=== PATIENT | male | born 1985 | race Caucasian/White ===

== ENCOUNTER 2017-07-02 09:05 | Emergency (ER) | payer MEDICAID ==
--- NOTE | 2017-07-02 09:43 | EDM.PDOC ---
ED HPI GENERAL MEDICAL PROBLEM - General Chief Complaint: General Stated Complaint: COUGH Time Seen by Provider: 07/02/17 09:27 - History of Present Illness INITIAL COMMENTS - FREE TEXT/NARRATIVE: HISTORY AND PHYSICAL: History of present illness: The patient is a 31-year-old male with no significant medical history or presents with a four-day history of dry hacking cough sore throat and raspy laryngitis-like voice body aches and subjective fevers and chills. The patient has a history of an ileostomy but otherwise has no abdominal pain vomiting or diarrhea. Patient has no neck pain headache or back pain. He does not feel short of breath but he says he is coughing up some phlegm. He says that one of his children at home is also ill. Patient is recently relocated here from [place] and has no provider in the clinic Review of systems: As per history of present illness and below otherwise all systems reviewed and negative. Past medical history: As per history of present illness and as reviewed below otherwise noncontributory. Surgical history: As per history of present illness and as reviewed below otherwise noncontributory. Social history: No reported history of drug or alcohol abuse. Family history: As per history of present illness and as reviewed below otherwise noncontributory. Physical exam: Gen.: Patient is well-developed well-nourished and mildly overweight who has slightly hoarse voice but is not breathless HEENT: Atraumatic, normocephalic, pupils reactive, negative for conjunctival pallor or scleral icterus, mucous membranes moist, throat clear of exudates but there is some posterior erythema no nuchal rigidity or cervical adenopathy, the turbinates are boggy bilaterally there is no gross sinus tenderness on palpation , neck supple, nontender, trachea midline. Lungs: Clear to auscultation with diminished breath sounds in the bases but no wheezing stridor or sensory muscle use, breath sounds equal bilaterally, chest nontender. Heart: S1S2, regular, rhythm and slightly tachycardic rate on my evaluation Abdomen: Soft, nondistended, nontender. NABS. Pelvis: Deferred Genitourinary: Deferred. Rectal: Deferred. Extremities: Atraumatic, negative for cords or calf pain. Neurovascular unremarkable. Neuro: Awake, alert, oriented. Cranial nerves II through XII unremarkable. Cerebellum unremarkable. Motor and sensory unremarkable throughout. Exam nonfocal. Diagnostics: Influenza rapid strep chest x-ray Therapeutics: [] Impression: Laryngitis/bronchitis Definitive disposition and diagnosis as appropriate pending reevaluation and review of above. Generalized Pain Score (Numeric/FACES): 7 - Related Data Allergies Allergy/AdvReac Type Severity Reaction Status Date / Time acetaminophen [From Vicodin] Allergy Nausea and Verified 07/02/17 09:26 Vomiting hydrocodone [From Vicodin] Allergy Nausea and Verified 07/02/17 09:26 Vomiting infliximab [From Remicade] Allergy Cardiac Verified 07/02/17 09:24 Arrest iodine Allergy Hives Verified 07/02/17 09:26 Penicillins Allergy Hives Verified 07/02/17 09:24 Home Meds: Home Meds Diclofenac Potassium [Cambia] 50 mg PO ASDIRECTED PRN 07/02/17 [History] Past Medical History Gastrointestinal History: Reports: Other (See Below) Other Gastrointestinal History: Ulcerative colitis Neurological History: Reports: Migraines - Infectious Disease History Infectious Disease History: Reports: Chicken Pox, MRSA - Past Surgical History HEENT Surgical History: Reports: Naso-Sinus Surgery GI Surgical History: Reports: Other (See Below) Other GI Surgeries/Procedures: 16 surgeries re Ulcerative Colitis, patient now has ileostomy Social & Family History - Tobacco Use Smoking Status *Q: Never Smoker Second Hand Smoke Exposure: No - Caffeine Use Caffeine Use: Reports: Coffee, Energy Drinks, Soda - Recreational Drug Use Recreational Drug Use: No ED ROS GENERAL - Review of Systems Review Of Systems: ROS reveals no pertinent complaints other than HPI. ED EXAM, GENERAL - Physical Exam Exam: See Below (See dictation) Course - Vital Signs Last Recorded V/S: Last Vital Signs Temp 37.2 C 07/02/17 09:20 Pulse 104 H 07/02/17 09:20 Resp 16 07/02/17 09:20 BP 140/96 H 07/02/17 09:20 Pulse Ox 95 07/02/17 09:20 - Orders/Labs/Meds Orders: Active Orders 24 hr Category Date Time Status Chest 2V [CR] Stat Exams 07/02/17 09:38 Taken CULTURE STREP A CONFIRMATION [RM] Stat Lab 07/02/17 10:00 Results STREP SCRN A RAPID W CULT CONF [RM] Stat Lab 07/02/17 10:00 Results Departure - Departure Time of Disposition: 11:10 Disposition: Home, Self-Care 01 Condition: Good Clinical Impression: Laryngitis, Bronchitis - Discharge Information Referrals: PCP,None [Primary Care Provider] - Forms: ED Department Discharge Additional Instructions: The following information is given to patients seen in the emergency department who are being discharged to home. This information is to outline your options for follow-up care. We provide all patients seen in our emergency department with a follow-up referral. The need for follow-up, as well as the timing and circumstances, are variable depending upon the specifics of your emergency department visit. If you don't have a primary care physician on staff, we will provide you with a referral. We always advise you to contact your personal physician following an emergency department visit to inform them of the circumstance of the visit and for follow-up with them and/or the need for any referrals to a consulting specialist. The emergency department will also refer you to a specialist when appropriate. This referral assures that you have the opportunity for followup care with a specialist. All of these measure are taken in an effort to provide you with optimal care, which includes your followup. Under all circumstances we always encourage you to contact your private physician who remains a resource for coordinating your care. When calling for followup care, please make the office aware that this follow-up is from your recent emergency room visit. If for any reason you are refused follow-up, please contact the [facility] emergency department at and ask to speak to the emergency department charge nurse. [facility] Primary care- Internal Medicine and Family [address] [address] Push hydration and take medications as directed and rest. Please call and follow -up with provider in our clinic as directed and return to ER as needed and as discussed. - My Orders Last 24 Hours: My Active Orders 07/02/17 09:38 Chest 2V [CR] Stat 07/02/17 10:00 CULTURE STREP A CONFIRMATION [RM] Stat STREP SCRN A RAPID W CULT CONF [RM] Stat - Assessment/Plan Last 24 Hours: My Active Orders 07/02/17 09:38 Chest 2V [CR] Stat 07/02/17 10:00 CULTURE STREP A CONFIRMATION [RM] Stat STREP SCRN A RAPID W CULT CONF [] Stat
--- NOTE | 2017-07-02 11:09 | CR ---
EXAMINATION: Two-view chest (PA and Lateral views). HISTORY: Shortness of breath. FINDINGS: The trachea is midline. The cardiomediastinal silhouette is within normal limits. No pulmonary infilt rates, effusions or pneumothorax. Osseous structures appear unremarkable. IMPRESSION: No acute cardiopulmonary process.
== END 2017-07-02 11:25 | disposition home or self-care (01) ==
LOC: MW.ED 09:05
DX: J04.0 Acute laryngitis (principal); J40 Bronchitis, not specified as acute or chronic; Z88.0 Allergy status to penicillin; Z88.5 Allergy status to narcotic agent; Z88.6 Allergy status to analgesic agent; Z88.8 Allergy status to other drugs, medicaments and biological substances
CPT/HCPCS: 71020; 71020-26; 87081; 87804; 87880; 99282; 99284

== ENCOUNTER 2017-08-10 15:00 | Emergency (ER) | payer MEDICAID ==
[2017-08-10] MEDS ORDERED: diphenhydrAMINE 50 MG/ML SDV IVPUSH ONE (15:22)
[2017-08-10] MEDS ORDERED: Ketorolac 30 MG/ML SDV IVPUSH ONE (15:22)
[2017-08-10] MEDS ORDERED: Ondansetron 4 MG/2 ML SDV IVPUSH ONE (15:22)
[2017-08-10] MEDS ORDERED: Sodium Chloride 0.9% 1,000 ML IV ONE (15:22)
--- NOTE | 2017-08-10 15:28 | EDM.PDOC ---
ED HPI GENERAL MEDICAL PROBLEM - General Chief Complaint: Headache Stated Complaint: MIGRAINE Time Seen by Provider: 08/10/17 15:03 Source of Information: Reports: Patient History Limitations: Reports: No Limitations - History of Present Illness INITIAL COMMENTS - FREE TEXT/NARRATIVE: HISTORY AND PHYSICAL: History of present illness: Patient is a 32-year-old male who presents to the emergency room with complaints of a migraine headache. He has had migraines since his early teens. His neurologist is from [place], which she has seen approximately one year ago. He states he gets "one really bad migraine at least once a month" and mild headaches at least 2-3 per week. He takes diclofenac 50 mg intranasally as needed for migraine abortive measures. States last night around midnight he started to get a "really bad headache" and proceeded to use his diclofenac. Woke up this morning and did not have any relief with this medication. He has light and noise sensitivity, nausea, vomiting. He states that although this migraine is bad, it is not the worst headache of his life, as it is similar to ones he does get monthly. He states he does have triggers for these types of migraines, it is usually caffeine, which he had had earlier this week. He denies any visual changes, abdominal pain, fever or chills,, chest pain or shortness of breath. Review of systems: As per history of present illness and below otherwise all systems reviewed and negative. Past medical history: As per history of present illness and as reviewed below otherwise noncontributory. Surgical history: As per history of present illness and as reviewed below otherwise noncontributory. Social history: No reported history of drug or alcohol abuse. Family history: As per history of present illness and as reviewed below otherwise noncontributory. Physical exam: Gen.: Well-developed and well-nourished 32-year-old male. Alert and oriented. Appears nontoxic and in no acute distress. HEENT: Atraumatic, normocephalic, pupils reactive, negative for conjunctival pallor or scleral icterus, tympanic membranes normal bilaterally, mucous membranes moist, throat clear, neck supple, nontender, trachea midline. Lungs: Clear to auscultation, breath sounds equal bilaterally, chest nontender. Heart: S1S2, regular ate and rhythm without overt murmurs Abdomen: Soft, obese, nondistended, nontender. Negative for masses or hepatosplenomegaly. Negative for costovertebral tenderness. Pelvis: Stable nontender. Genitourinary: Deferred. Rectal: Deferred. Extremities: Atraumatic, negative for cords or calf pain. Neurovascular unremarkable. Neuro: Awake, alert, oriented. Cranial nerves II through XII unremarkable. Cerebellum unremarkable. Motor and sensory unremarkable throughout. Exam nonfocal. Did discuss possible diagnostics with the patient. He declines a head CT at this time. Is agreeable to receiving IV fluids and medications. Patient states he got relief at a 6 out of 10 with the Toradol, Zofran and Benadryl. Did give the patient 1 mg of Ativan IV. He is currently at a 3-4/10. States he feels well enough to go home. Encouraged the patient to go home and rest in a quiet dark room for the rest of the day. Will give the patient a prescription for Maxalt 5 mg ODT, may take 1 tablet at the onset of a migraine and may repeat second dose in 2 hours, 2 in a 24-hour period. Encouraged him to follow-up with a neurologist to find better management of his migraine symptoms. Patient is agreeable to plan of care and he denies any further questions at this time. Diagnostics: [] Therapeutics: IV fluid, Toradol, Zofran, Benadryl and Ativan Impression: Migraine Plan: 1. A prescription for Maxalt 5 mg ODT has been given to you. You may take 1 tablet, which will dissolve in your mouth, at the onset of symptoms of a migraine. You may take a second tablet 2 hours after, if you continued to have symptoms. You may repeat this if total of 2 times in a 24-hour period. You may continue to use Cambia as needed. But please do not take the two medications in the same 24 hour period. 2. I would encourage you to follow-up with the neurologist, either Dr. Bhardwaj here in [place] or your primary neurologist in [place]. You are taking your medications quite frequently and still having migraines at least monthly, there are medications that control this. 3. Follow-up with your primary caregiver in the next 1-2 days. Return to the ED as needed and as discussed. Definitive disposition and diagnosis as appropriate pending reevaluation and review of above. Onset: Today Duration: Hour(s): Location: Reports: Head headache Pain Score (Numeric/FACES): 7 - Related Data Allergies Allergy/AdvReac Type Severity Reaction Status Date / Time acetaminophen [From Vicodin] Allergy Nausea and Verified 08/10/17 15:21 Vomiting hydrocodone [From Vicodin] Allergy Nausea and Verified 08/10/17 15:21 Vomiting infliximab [From Remicade] Allergy Cardiac Verified 08/10/17 15:21 Arrest iodine Allergy Hives Verified 08/10/17 15:21 Penicillins Allergy Hives Verified 08/10/17 15:21 Home Meds: Home Meds Diclofenac Potassium [Cambia] 50 mg PO ASDIRECTED PRN 07/02/17 [History] Past Medical History Gastrointestinal History: Reports: Other (See Below) Other Gastrointestinal History: Ulcerative colitis Neurological History: Reports: Migraines - Infectious Disease History Infectious Disease History: Reports: Chicken Pox, MRSA - Past Surgical History HEENT Surgical History: Reports: Naso-Sinus Surgery GI Surgical History: Reports: Other (See Below) Other GI Surgeries/Procedures: 16 surgeries re Ulcerative Colitis, patient now has ileostomy Social & Family History - Tobacco Use Smoking Status *Q: Never Smoker Second Hand Smoke Exposure: No - Caffeine Use Caffeine Use: Reports: Coffee, Energy Drinks, Soda - Recreational Drug Use Recreational Drug Use: No ED ROS GENERAL - Review of Systems Review Of Systems: ROS reveals no pertinent complaints other than HPI. - Physical Exam Exam: See Below (See dictation) Course - Vital Signs Last Recorded V/S: Last Vital Signs Temp 97.8 F 08/10/17 15:00 Pulse 101 H 08/10/17 15:00 Resp 18 08/10/17 15:00 BP 152/78 H 08/10/17 15:00 Pulse Ox 98 08/10/17 15:00 - Orders/Labs/Meds Meds: Medications Discontinued Medications Generic Name Dose Route Start Last Admin Trade Name Freq PRN Reason Stop Dose Admin Diphenhydramine HCl 50 mg 08/10/17 15:22 08/10/17 15:58 Benadryl IVPUSH 08/10/17 15:23 50 mg ONETIME ONE Administration Sodium Chloride 1,000 mls @ 999 mls/hr 08/10/17 15:22 08/10/17 16:06 Normal Saline IV 08/10/17 16:22 999 mls/hr STAT ONE Administration Ketorolac Tromethamine 30 mg 08/10/17 15:22 08/10/17 15:58 Toradol IVPUSH 08/10/17 15:23 30 mg ONETIME ONE Administration Lorazepam 1 mg 08/10/17 16:04 08/10/17 16:45 Ativan IVPUSH 08/10/17 16:05 1 mg ONETIME ONE Administration Ondansetron HCl 4 mg 08/10/17 15:22 08/10/17 15:58 Zofran IVPUSH 08/10/17 15:23 4 mg ONETIME ONE Administration Departure - Departure Time of Disposition: 17:35 Disposition: Home, Self-Care 01 Clinical Impression: Migraine - Discharge Information Referrals: PCP,None [Primary Care Provider] - Forms: ED Department Discharge Additional Instructions: My general discharge The following information is given to patients seen in the emergency department who are being discharged to home. This information is to outline your options for follow-up care. We provide all patients seen in our emergency department with a follow-up referral. The need for follow-up, as well as the timing and circumstances, are variable depending upon the specifics of your emergency department visit. If you don't have a primary care physician on staff, we will provide you with a referral. We always advise you to contact your personal physician following an emergency department visit to inform them of the circumstance of the visit and for follow-up with them and/or the need for any referrals to a consulting specialist. The emergency department will also refer you to a specialist when appropriate. This referral assures that you have the opportunity for follow-up care with a specialist. All of these measure are taken in an effort to provide you with optimal care, which includes your follow-up. Under all circumstances we always encourage you to contact your private physician who remains a resource for coordinating your care. When calling for follow-up care, please make the office aware that this follow-up is from your recent emergency room visit. If for any reason you are refused follow-up, please contact the [facility] Emergency Department at and asked to speak to the emergency department charge nurse. [facility] Primary [facility] [address] [place] [address] [id number] [facility] Specialty Care - Neurology Professional [facility] [address] [place] [address], [address] [place] [address] 1. A prescription for Maxalt 5 mg ODT has been given to you. You may take 1 tablet, which will dissolve in your mouth, at the onset of symptoms of a migraine. You may take a second tablet 2 hours after, if you continued to have symptoms. You may repeat this if total of 2 times in a 24-hour period. You may continue to use Cambia as needed. But please do not take the two medications in the same 24 hour period. 2. I would encourage you to follow-up with the neurologist, either Dr. Bhardwaj here in [place] or your primary neurologist in [place]. You are taking your medications quite frequently and still having migraines at least monthly, there are medications that control this. 3. Follow-up with your primary caregiver in the next 1-2 days. Return to the ED as needed and as discussed.
[2017-08-10] MEDS ORDERED: LORazepam 2 MG/ML SDV IVPUSH ONE (16:04)
== END 2017-08-10 17:59 | disposition home or self-care (01) ==
LOC: MW.ED 15:00
DX: G43.909 Migraine, unspecified, not intractable, without status migrainosus (principal); Z88.5 Allergy status to narcotic agent; Z88.0 Allergy status to penicillin
CPT/HCPCS: 96361; 96374; 96375; 99284; J1200; J1885; J2060; J2405; J7040

== ENCOUNTER 2018-04-21 09:22 | Emergency (ER) | payer MEDICAID ==
[2018-04-21] MEDS ORDERED: Ketorolac 60 MG/2 ML SDV IM ONE (09:55)
--- NOTE | 2018-04-21 09:55 | EDM.PDOC ---
ED HPI GENERAL MEDICAL PROBLEM - General Chief Complaint: Upper Extremity Injury/Pain Stated Complaint: RT HAND GOING NUMB Time Seen by Provider: 04/21/18 09:44 - History of Present Illness INITIAL COMMENTS - FREE TEXT/NARRATIVE: HISTORY AND PHYSICAL: History of present illness: The patient is a 32-year-old male who presents complaints of pain to his right wrist that started yesterday after he felt a pop. The patient says that he was just pulling something out of a bag when he felt this and he is concerned because he had a fracture in his wrist last year for which he had a wear a cast for 6 weeks. The patient states that he had no issues until yesterday. He took Tylenol only for pain and has some tingling in his hand as he has not been moving very much. He has no distal finger pain no proximal forearm elbow or shoulder pain and has no other systemic complaints. He had no direct injury to the area. The patient is right-hand dominant Review of systems: As per history of present illness and below otherwise all systems reviewed and negative. Past medical history: As per history of present illness and as reviewed below otherwise noncontributory. Surgical history: As per history of present illness and as reviewed below otherwise noncontributory. Social history: No reported history of drug or alcohol abuse. Family history: As per history of present illness and as reviewed below otherwise noncontributory. Physical exam: General: Well-developed well-nourished overweight man who is nontoxic and vital signs are noted by me HEENT: Atraumatic, normocephalic, negative for conjunctival pallor or scleral icterus, mucous membranes moist, throat clear, neck supple, nontender, trachea midline. Lungs: Clear to auscultation, breath sounds equal bilaterally, chest nontender. Heart: S1S2, regular rate and rhythm no overt murmurs Abdomen: Soft, nondistended, nontender. NABS. Negative for costovertebral tenderness. Pelvis: Deferred Genitourinary: Deferred. Rectal: Deferred. Extremities: Atraumatic with full range of motion of all extremities with the exception of the right wrist where there is no soft tissue swelling no ecchymosis and no palpable bony deformities but there is tenderness at the ulnar styloid. The remainder of the hand is nontender without defects or deformities and there is no distal soft tissue swelling. Pulses are strong both radial and ulnar. The proximal forearm elbow humerus and shoulder are nontender without defects or deformities., The legs are negative for cords or calf pain. Neurovascular unremarkable. Neuro: Awake, alert, oriented. Cranial nerves II through XII unremarkable. Cerebellum unremarkable. Motor and sensory unremarkable throughout. Exam nonfocal. Diagnostics: X-ray right wrist Therapeutics: Toradol ulnar gutter splint Testing results were discussed and and referral to Dr. Cary will be made for evaluation of the small chip fracture Impression: Right wrist injury/pain rule out chip triquetral fracture Definitive disposition and diagnosis as appropriate pending reevaluation and review of above. Right Wrist Pain Score (Numeric/FACES): 6 - Related Data Allergies Allergy/AdvReac Type Severity Reaction Status Date / Time acetaminophen [From Vicodin] Allergy Nausea and Verified 04/21/18 09:31 Vomiting hydrocodone [From Vicodin] Allergy Nausea and Verified 04/21/18 09:31 Vomiting infliximab [From Remicade] Allergy Cardiac Verified 04/21/18 09:31 Arrest iodine Allergy Hives Verified 04/21/18 09:31 Penicillins Allergy Hives Verified 04/21/18 09:31 Home Meds: Home Meds Diclofenac Potassium [Cambia] 50 mg PO ASDIRECTED PRN 07/02/17 [History] Past Medical History Gastrointestinal History: Reports: Other (See Below) Other Gastrointestinal History: Ulcerative colitis Neurological History: Reports: Migraines - Infectious Disease History Infectious Disease History: Reports: Chicken Pox - Past Surgical History HEENT Surgical History: Reports: Naso-Sinus Surgery GI Surgical History: Reports: Other (See Below) Other GI Surgeries/Procedures: 16 surgeries re Ulcerative Colitis, patient now has ileostomy Social & Family History - Family History Family Medical History: Noncontributory - Tobacco Use Smoking Status *Q: Never Smoker - Caffeine Use Caffeine Use: Reports: Coffee, Energy Drinks, Soda - Recreational Drug Use Recreational Drug Use: No Review of Systems - Review of Systems Review Of Systems: ROS reveals no pertinent complaints other than HPI. ED EXAM, GENERAL - Physical Exam Exam: See Below (See dictation) Course - Vital Signs Last Recorded V/S: Last Vital Signs Temp 36.2 C 04/21/18 09:28 Pulse 102 H 04/21/18 09:28 Resp 18 04/21/18 09:28 BP 163/98 H 04/21/18 09:28 Pulse Ox 97 04/21/18 09:28 - Orders/Labs/Meds Orders: Active Orders 24 hr Category Date Time Status Wrist Comp Min 3V Rt [CR] Stat Exams 04/21/18 09:36 Taken DME for Discharge [COMM] Stat Oth 04/21/18 10:42 Ordered Meds: Medications Discontinued Medications Generic Name Dose Route Start Last Admin Trade Name Freq PRN Reason Stop Dose Admin Ketorolac Tromethamine 60 mg 04/21/18 09:55 04/21/18 10:28 Toradol IM 04/21/18 09:56 60 mg ONETIME ONE Administration Departure - Departure Time of Disposition: 10:54 Disposition: Home, Self-Care 01 Condition: Good Clinical Impression: Triquetral chip fracture - Discharge Information Referrals: PCP,None [Primary Care Provider] - Forms: ED Department Discharge Additional Instructions: The following information is given to patients seen in the emergency department who are being discharged to home. This information is to outline your options for follow-up care. We provide all patients seen in our emergency department with a follow-up referral. The need for follow-up, as well as the timing and circumstances, are variable depending upon the specifics of your emergency department visit. If you don't have a primary care physician on staff, we will provide you with a referral. We always advise you to contact your personal physician following an emergency department visit to inform them of the circumstance of the visit and for follow-up with them and/or the need for any referrals to a consulting specialist. The emergency department will also refer you to a specialist when appropriate. This referral assures that you have the opportunity for followup care with a specialist. All of these measure are taken in an effort to provide you with optimal care, which includes your followup. Under all circumstances we always encourage you to contact your private physician who remains a resource for coordinating your care. When calling for followup care, please make the office aware that this follow-up is from your recent emergency room visit. If for any reason you are refused follow-up, please contact the [facility] emergency department at and ask to speak to the emergency department charge nurse. [facility] Specialty clinic-Plastic Surgery and Hand Surgery Professional Building [address] [place] [id number] Leave splint on until you're seen by the hand specialist. Call the clinic for a follow-up appointment. Ice and elevate and use [id number] ibuprofen, 600- 800 mg every 6-8 hours. Return to ER as needed and as discussed - My Orders Last 24 Hours: My Active Orders 04/21/18 09:36 Wrist Comp Min 3V Rt [CR] Stat 04/21/18 10:42 DME for Discharge [COMM] Stat - Assessment/Plan Last 24 Hours: My Active Orders 04/21/18 09:36 Wrist Comp Min 3V Rt [CR] Stat 04/21/18 10:42 DME for Discharge [COMM] Stat
--- NOTE | 2018-04-21 15:52 | CR ---
EXAM DATE: 04/21/18 PATIENT'S AGE: 32 Patient: ARIANNA GODFREY Facility: [place], [place] Site . Site : 1985 Study: XRay Extremity Right [id number]/27/2018 10:04:54 AM Ordering Physician: Doctor Gabriel Final Report: INDICATION: Old injury, re-injury yesterday with tingling in fingers. FINDINGS: There is fullness of the pronator quadratus fat pad and a defect in the tissues are swollen. On the lateral exam is a questionable very small avulsion of the triquetrum. Joint spaces are preserved and bony mineralization is normal. IMPRESSION: Questionable small triquetral flake avulsion. Dictated by Suyapa Olivas MD @ Apr 21 2018 10:08AM (Electronic Signature) Report Signed by Proxy. FREDA
== END 2018-04-21 11:20 | disposition home or self-care (01) ==
LOC: MW.ED 09:22
DX: S62.111A Displaced fracture of triquetrum [cuneiform] bone, right wrist, initial encounter for closed fracture (principal); Z88.8 Allergy status to other drugs, medicaments and biological substances; Z88.0 Allergy status to penicillin; Z88.5 Allergy status to narcotic agent; X58.XXXA Exposure to other specified factors, initial encounter
CPT/HCPCS: 29125; 73110; 96372; 99283; J1885